=== PATIENT | female | born 1960 | race Caucasian/White ===

== ENCOUNTER 2019-09-05 22:41 | Emergency (ER) | payer BC, OTHER ==
[~2019-09-05] VITALS: Ht 157.5 cm; Wt 61.5 kg
[~2019-09-05 22:41] MED LIST: LISI20TA
[2019-09-05] MEDS ORDERED: LIDOCAINE-MPF 1%, 2ML ONE (23:49)
[2019-09-05] MEDS ORDERED: DIPH,PERTUSS(ACELL),TET VAC/PF 0.5 ML IM-VACC ONE (23:49)
[2019-09-06] MEDS ORDERED: LIDOCAINE 1%, 10ML INFIL ONE
[2019-09-06] MEDS ORDERED: DIPH,PERTUSS(ACELL),TET VAC/PF 0.5 ML IM-VACC ONE
[2019-09-06] MEDS ORDERED: NEOSPORIN OINT. PKT 1 PACKET ONE (00:35)
[2019-09-06 00:38] VITALS: BP 110/61
== END 2019-09-06 00:40 | disposition home or self-care (01) ==
LOC: ED 09-06
DX: S01.511A Laceration without foreign body of lip, initial encounter (principal); W54.0XXA Bitten by dog, initial encounter; Y93.89 Activity, other specified; Y92.89 Other specified places as the place of occurrence of the external cause; Y99.8 Other external cause status
CPT/HCPCS: 12051; 12052; 90471; 90715; 99285

== ENCOUNTER → 2020-02-11 | Outpatient (CLI) | payer BC | END | disposition home or self-care (01) | LOC: CFH 09:49 | PROVIDERS: ATTEND Nurse Practitioner Family | DX: Z12.2 Encounter for screening for malignant neoplasm of respiratory organs (principal); F17.210 Nicotine dependence, cigarettes, uncomplicated | CPT/HCPCS: G0297 ==